=== PATIENT | male | born 1985 | race Two or more races ===

== ENCOUNTER 2024-04-07 14:51 | Emergency (ER) | payer OTHER ==
[~2024-04-07] VITALS: Ht 170.2 cm; Wt 75.3 kg
[2024-04-07] MEDS ORDERED: ACETAMINOPHEN ES 500 MG TABLET ONE (16:44)
[2024-04-07] MEDS: ACETAMINOPHEN ES 500 MG TABLET PO ONE (16:48)
[2024-04-07 16:51] VITALS: BP 131/84; TEMP 98.4; O2SAT 100
== END 2024-04-07 16:53 | disposition home or self-care (01) ==
LOC: ER 14:54
DX: S52.591A Other fractures of lower end of right radius, initial encounter for closed fracture (principal); Z60.2 Problems related to living alone; W11.XXXA Fall on and from ladder, initial encounter; Y93.89 Activity, other specified; Y92.89 Other specified places as the place of occurrence of the external cause; Y99.8 Other external cause status
CPT/HCPCS: 73110